=== PATIENT | male | born 1940 | race Caucasian/White ===

== ENCOUNTER 2016-08-06 13:57 | Emergency (ER) | payer OTHER ==
--- NOTE | ~2016-08-06 | EKG ---
PATIENT: JCARLOS VICENTE UNIT #: [id number] Ventricular Rate: 80 BPM Atrial Rate: 78 BPM QRS Duration: 92 ms Q-T Interval: 384 ms QTC Calculation(Bezet): 442 ms Calculated R [place]: 39 degrees Calculated T [place]: 51 degrees Diagnosis Line: Atrial fibrillation Diagnosis Line: Septal infarct , age undetermined Diagnosis Line: Abnormal ECG Diagnosis Line: No previous ECGs available Diagnosis Line: Confirmed by ROSEMARIE SUAREZ MD ([id number]) on Diagnosis Line: 08/07/2016 8:17:05 AM INTERPRETING MD: ERICK ARGUETA
--- NOTE | ~2016-08-06 | CR181 ---
[facility] A Service of [facility] RADIOLOGY TEXT RESULTS PATIENT: JCARLOS VICENTE JR LOCATION: [facility] : 41 UNIT #: [id number] AGE: [address]: Gilmar Franklin MD SEX: M ORDER DR: [id number] [facility] [place] [address] [place], [place] [address] [id number] E MR#: [id number] Acc #: [id number] NAME: JCARLOS VICENTE JR : 1940 SEX: M STUDY DATE/TIME: 08/06/2016 16:11 UNIT: [facility] ROOM: STUDY DESCRIPTION: CR Lumbar Spine 2 or 3 Views Attending Physician: Gilmar Franklin M.D. Ordering Physician: Gilmar Franklin M.D. Primary Care Physician: Gilmar Jordan M.D. MEDICAL IMAGING REPORT This report is preliminary unless electronic signature is present EXAM Lumbar spine, 3 views HISTORY Low back pain radiating to both legs since May 20, 2016. FINDINGS There is osteopenia and discogenic change and a loss of lordosis but no fracture or acute abnormality. There are bridging osteophytes across the 3-4 and 4-5 discs. Dictated by... Rodrick Almaraz M.D. THIS IS AN ELECTRONICALLY VERIFIED REPORT Rodrick Almaraz M.D. at 08/09/2016 3:48 PM TEV/psc TD: 08/07/2016 02:47 JOB #: [id number] MEDICAL IMAGING REPORT COPY
--- NOTE | ~2016-08-06 | CR72 ---
[facility] A Service of [facility] RADIOLOGY TEXT RESULTS PATIENT: JCARLOS VICENTE JR LOCATION: [facility] : 41 UNIT #: [id number] AGE: [address]: Gilmar Franklin MD SEX: M ORDER DR: [id number] [facility] [address] [place], [place] [address] [id number] E MR#: [id number] Acc #: [id number] NAME: JCARLOS VICENTE JR : 1940 SEX: M STUDY DATE/TIME: 08/06/2016 14:04 UNIT: [facility] ROOM: STUDY DESCRIPTION: CR Chest Single View Portable Attending Physician: Gilmar Franklin M.D. Ordering Physician: Gilmar Franklin M.D. Primary Care Physician: Gilmar Jordan M.D. MEDICAL IMAGING REPORT This report is preliminary unless electronic signature is present EXAM Portable chest 08/06/2016 INDICATIONS 76-year-old male with shortness of breath today and generalized weakness. COMPARISON STUDIES No comparisons. FINDINGS Heart size upper normal. No definite acute infiltrate. Atherosclerotic calcification of the aorta. Degenerative changes of the shoulders. IMPRESSION No active disease. Dictated by... Collin Hogan M.D. THIS IS AN ELECTRONICALLY VERIFIED REPORT Collin Hogan M.D. at 08/06/2016 4:59 PM Tereso TD: 08/06/2016 16:41 JOB #: [id number] MEDICAL IMAGING REPORT COPY
--- NOTE | ~2016-08-06 | CT71 ---
[facility] A Service [facility] RADIOLOGY TEXT RESULTS PATIENT: JCARLOS VICENTE JR LOCATION: [facility] : 42 UNIT #: [id number] AGE: [address]: Gilmar Franklin MD SEX: M ORDER DR: [id number] [facility] [address] [place], [place] [address] [id number] E MR#: [id number] Acc #: [id number] NAME: JCARLOS VICENTE JR : 1940 SEX: M STUDY DATE/TIME: 08/06/2016 14:55 UNIT: [facility] ROOM: STUDY DESCRIPTION: CT Head Wo Contrast Attending Physician: Gilmar Franklin M.D. Ordering Physician: Gilmar Franklin M.D. Primary Care Physician: Gilmar Jordan M.D. MEDICAL IMAGING REPORT This report is preliminary unless electronic signature is present EXAM Head CT, no contrast, 08/06/2016 PROCEDURE Axial unenhanced head CT. This CT exam was performed with one or more of the following radiation dose reduction techniques: automatic exposure control, adjustment of mA and/or kV according to patient size, and iterative reconstruction. COMPARISON None. CLINICAL HISTORY Lethargy and confusion today. FINDINGS There is no intracranial hemorrhage or mass. There is no hydrocephalus or extraaxial fluid collection. There is volume loss and there is white matter change typical of chronic small vessel disease but again, no convincing acute abnormality is seen. The extracranial soft tissues are normal. The skull base and calvarium are normal. IMPRESSION Chronic small vessel change and volume loss. No acute abnormality. Dictated by... Rodrick Almaraz M.D. THIS IS AN ELECTRONICALLY VERIFIED REPORT Rodrick Almaraz M.D. at 08/09/2016 3:48 PM [facility] A Service [facility] RADIOLOGY TEXT RESULTS PATIENT: JCARLOS VICENTE JR LOCATION: [facility] : 42 UNIT #: [id number] AGE: [address]: Gilmar Franklin MD SEX: M ORDER DR: MARILU/leonid TD: 08/06/2016 22:05 JOB #: [id number] MEDICAL IMAGING REPORT COPY
[2016-08-06 14:03] LABS: URINE SOURCE CLEAN CATCH
[2016-08-06 14:20] LABS: URINE APPEARANCE CLEAR; URINE BILIRUBIN NEG (NEG); URINE BLOOD 1+ (NEG); URINE COLOR YELLOW; URINE GLUCOSE 500 MG/DL (NEG); URINE KETONE NEG (NEG); URINE LEUKOCYTE ESTERASE NEG (NEG); URINE NITRATE NEG (NEG); URINE PROTEIN 3+ (NEG); URINE SPECIFIC GRAVITY 1.019 (1.003-1.035); URINE UROBILINOGEN 0.2 MG/DL (NEG)
[2016-08-06 14:24] LABS: URBCS1 AUWI 0-2 /[HPF] (0-2); URINE BACTERIA AUWI NEG (NEGATIVE); URINE SQUAMOUS EPITHELIAL CELL NONE SEEN /[HPF]; UWBCS1 AUWI 0-2 (0-5)
[2016-08-06 14:34] LABS: CULTURE INDICATED? NO
[2016-08-06 14:38] LABS: U HYALINE CASTS AUWI 0-2 /[LPF]; URINE GRANULAR CAST 0-2 /[HPF]
[2016-08-06 14:58] LABS: POC - CKMB 1.3 ng/mL (0.0-7.9); POC - TROPONIN <0.05 ng/mL (<=0.05)
[2016-08-06 15:06] LABS: BASOPHIL% 0.4 % (0-2.5); EOSINOPHIL# 0.1 X10e3 (0-0.7); EOSINOPHIL% 1.3 % (0.0-7.0); HEMATOCRIT 48.7 % (38.0-50.0); HEMOGLOBIN 15.6 gm/dL (13.0-16.0); LYMPHOCYTE# 1.9 X10e3 (1.0-3.5); LYMPHOCYTE% 16.5 % (17.0-45.0); MEAN CELL VOLUME 86.9 FL (83-96); MEAN CORPUSCULAR HEMOGLOBIN 27.9 PG (28-34); MEAN CORPUSCULAR HGB CONC 32.1 g/dL (30-36); MEAN PLATELET VOLUME 11.9 FL (6.5-11.5); MONOCYTE# 1.2 X10e3 (0-1.0); MONOCYTE% 10.8 % (3.0-12.0); NEUTROPHIL# 8.1 X10e3 (1.5-7.1); PLATELET COUNT 171 X10e3 (140-420); RED CELL DISTRIBUTION WIDTH 15.3 % (11.0-15.5); WHITE BLOOD COUNT 11.4 X10e3 (4.0-10.5)
[2016-08-06 15:14] LABS: ALBUMIN SERUM 3.1 g/dL (3.5-5.0); ALKALINE PHOSPHATASE 81 U/L (32-92); ALT (SGPT) 26 U/L (10-40); AST (SGOT) 22 U/L (10-42); BILIRUBIN, DIRECT 0.4 mg/dL (0.0-0.2); BILIRUBIN,INDIRECT 0.9 mg/dL (0.0-0.9); BILIRUBIN,TOTAL 1.3 mg/dL (0.2-2.0); BLOOD UREA NITROGEN 28 mg/dL (9-23); CALCIUM SERUM 9.7 mg/dL (8.4-10.2); CARBON DIOXIDE 23 mmol/L (22-31); CHLORIDE 105 mmol/L (100-111); GLOM FILT RATE Estimated ABOVE60 mL/min (>60); GLUCOSE FASTING 303 mg/dL (70-110); POTASSIUM 3.8 mmol/L (3.5-5.1); PROTEIN TOTAL SERUM 6.1 g/dL (6.0-8.3); SODIUM 137 mmol/L (135-145)
[2016-08-06 15:42] LABS: DIFF IND NO
== END 2016-08-06 17:11 | disposition home or self-care (01) ==
LOC: CED 13:57
PROVIDERS: Emergency Medicine
DX: R53.1 Weakness (principal); M54.5 Low back pain; E11.65 Type 2 diabetes mellitus with hyperglycemia; I11.0 Hypertensive heart disease with heart failure; I50.9 Heart failure, unspecified; G89.29 Other chronic pain
CPT/HCPCS: 36415; 70450; 71010; 72100; 80048; 80076; 81003; 82553; 82947; 84484; 85025; 93005; 96361; 96374; 99284; J3010